=== PATIENT | female | born 1950 | race Caucasian/White ===

== ENCOUNTER 2018-03-21 11:36 | Inpatient (IN) ==
--- NOTE | 2018-03-21 11:53 | History & Physical Report ---
Date of Encounter: 03/21/18 Time of Encounter: 11:52 24 Hour HP Update - Instructions Instructions: If the History and Physical is less than 30 days old and was completed prior to A.M. admission and or procedure and has NOT been updated on calendar day of procedure please complete this update prior to performing procedure. - Update Patient reports changes in Medical Condition: No Changes in examination, assessment, or condition: No Changes in Medication: No Preop tests/diagnostics Reviewed: Yes Surgery Remains Indicated: Yes Consent for Planned Operative Procedure(s) Verified: Yes - Pre-Operative Checklist Preoperative Checklist Indicated: No Prophylactic Antibiotic Ordered: Yes Is VTE Prophylaxis Indicated?: Yes
[2018-03-21] MEDS ORDERED: Ringers Solution, Lactated 1,000 ML IVC SCH ×2 (12:00→17:45)
[2018-03-21] MEDS ORDERED: Clindamycin 600 MG/50 ML 600 MG/50 ML IV.SOLN IVPB STA (12:00)
[2018-03-21] MEDS ORDERED: Albuterol 2.5 MG/3 ML NEBULIZER ONE (12:17)
--- NOTE | 2018-03-21 12:44 | Anesthesia Evaluation PreOp ---
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 HX Other Medical History: Denies Any Significant HX Anesthesia History: No Prior Anesthetic Complications Alcohol Use: none Drug use: none Medications and Allergies Albuterol Neb [AccuNeb] 3 ml IH Q8H PRN 09/30/14 [History] Alprazolam [Xanax] 1 mg PO QID 09/30/14 [History] Atenolol [Tenormin] 50 mg PO QAM 09/30/14 [History] Fluticasone Propionate Nasal [Flonase] 50 mcg NS DAILY PRN 09/30/14 [History] HYDROcodone/Acet 7.5/325 mg [[place] 7.5-325 mg] 1 tab PO BID PRN 09/30/14 [History] Promethazine [Phenergan] 25 mg PO BID PRN 09/30/14 [History] Ranitidine HCl [Zantac] 150 mg PO DAILY PRN 09/30/14 [History] Tiotropium [Spiriva] 2 puff IH QAM 09/30/14 [History] Albuterol Sulfate [Albuterol Inhaler] 2 puff IH Q4HR PRN 01/05/15 [History] Aspirin 81 mg PO QAM 01/05/15 [History] Isosorbide MONOnitrate (24 HR) [Imdur] 60 mg PO QAM 01/05/15 [History] Lisinopril [Zestril] 10 mg PO QAM 01/05/15 [History] Docusate [Colace] 100 mg PO TIDWM #90 capsule 01/14/15 [Rx] Furosemide [Lasix] 40 mg PO DAILY #0 01/14/15 [Rx] predniSONE [Prednisone] 60 mg PO DAILY 5 Days tablet 03/14/15 [Rx] predniSONE [PredniSONE] 40 mg PO DAILY 4 Days tablet 04/29/15 [Rx] Promethazine/Phenyleph/Codeine [Promethazine Vc-Codeine Syrup] 5 ml PO Q6H PRN #120 ml 05/20/15 [Rx] Benzonatate [Tessalon] 200 mg PO TID PRN #30 capsule 06/01/16 [Rx] GuaiFENesin ER [Mucinex] 1,200 mg PO BID #20 tbbp.12hr 06/01/16 [Rx] levoFLOXacin [Levaquin] 500 mg PO DAILY #10 tablet 06/01/16 [Rx] predniSONE [Prednisone] 60 mg PO DAILY 5 Days tablet 06/01/16 [Rx] Azithromycin [Azithromycin 6-Tab Pack] 250 mg PO PER PKG DI #6 tab 11/29/17 [Rx] Allergy/AdvReac Type Severity Reaction Status Date / Time Penicillins [PCN] Allergy Anaphylaxis Verified 03/20/18 12:36 codeine AdvReac Gastrointestinal Verified 03/20/18 12:36 Upset wasp Allergy Anaphylaxis Uncoded 03/20/18 12:36 - Meds/Allergy Pre-op Review Medications Reviewed: Yes Allergies Reviewed: Yes Beta Blockers on Current Med List: Yes Anesthesia Results - Labs Laboratory Tests 03/20/18 03/20/18 03/20/18 12:50 12:50 12:50 WBC 6.2 Hgb 10.5 L Hct 31.5 L Plt Count 250 PT 10.5 INR 0.9 APTT 31.4 Sodium 134 L Potassium 3.8 Chloride 97 L Carbon Dioxide 26 BUN 6 L Creatinine 0.68 Est GFR ( Amer) > 60 Est GFR (Non-Af Amer) > 60 BUN/Creatinine Ratio 9 - Imaging EKG: report reviewed, image reviewed (SR) Anesthesia Exam Weight: 44 kg NPO (# of Hours): > 8 hrs - HEENT Pupil (Motor): Pupils equal, EOMI Mallampati: II Teeth: Edentulous Denture Type: Upper: Complete Oral Opening: Greater than 3 - TRANSPORT OPERATIONS INSPECTOR LOC: Oriented - Cardiac Rhythm: Regular Murmur: None - Pulmonary Breath Sounds: bilateral Clear Respiratory Effort: Symmetrical Anesthesia Assess/Plan ASA Score: 3 Level of consciousness: Cooperative Anesthetic Plan: General Reason for No Neuroaxial/Regional Block: Other (Patient with severe COPD - patient concerned about undergoing nerve block given her difficultly breathing at baseline) Monitoring Plan: Standard Monitors Recovery Plan: PACU
[2018-03-21] MEDS ORDERED: Scopolamine Patch 1.5 MG PATCH.TD72 TD ONE (12:45)
[2018-03-21] MEDS ORDERED: Ondansetron 4 MG/2 ML VIAL IVP ONE (12:46)
[2018-03-21] MEDS ORDERED: *HR* Midazolam HCl 2 MG/2 ML VIAL ONE (12:58)
[2018-03-21] MEDS ORDERED: *HR* FentaNYL (PF) 100 MCG/2 ML VIAL ONE (12:58)
[2018-03-21] MEDS ORDERED: *HR* Propofol 200 MG/20 ML VIAL IVP ONE (12:58)
--- NOTE | 2018-03-21 13:07 | Discharge Summary ---
Orders not resulted at time of discharge: Pending orders 03/21/18 12:08 XR shoulder complete RT [XR] Routine Hemoglobin and Hematocrit [HEME] Routine Date of Encounter: 03/22/18 Time of Encounter: 06:50 - Discharge Diagnosis (1) Hypertension Priority: Secondary Status: Chronic Qualifiers: Hypertension type: unspecified Qualified Code(s): I10 - Essential (primary) hypertension (2) COPD (chronic obstructive pulmonary disease) Priority: Secondary Status: Chronic Qualifiers: COPD type: unspecified COPD Qualified Code(s): J44.9 - Chronic obstructive pulmonary disease, unspecified (3) Humerus fracture Priority: Primary Status: Acute Qualifiers: Encounter type: initial encounter Humerus Location: surgical neck Fracture type: closed Fracture morphology: 2-part Fracture alignment: displaced Laterality: right Qualified Code(s): S42.221A - 2-part displaced fracture of surgical neck of right humerus, initial encounter for closed fracture (4) Status post reverse total shoulder replacement Priority: Primary Status: Acute Qualifiers: Laterality: right Qualified Code(s): Z96.611 - Presence of right artificial shoulder joint - Hospital Course Hospital course: Ms. Johansen is a 67 year old female The patient had an uneventful postoperative course. They received antibiotics and physical therapy and were discharged in stable condition. There will follow-up in the office in 2 weeks. - Time Spent with Patient Total time spent providing and/or coordinating discharge services: - Discharge Medications Home Medications: ALPRAZolam [Xanax 1 MG Tablet] 1 mg PO TID 03/21/18 [History] Albuterol Sulfate [Ventolin Hfa] 2 puff IH Q4H PRN 03/21/18 [History] Atenolol [Tenormin] 50 mg PO DAILY 03/21/18 [History] Budesonide/Formoterol 160/4.5 [Symbicort 160/4.5] 2 puff IH DAILY 03/21/18 [History] Buspirone HCl [Buspar] 10 mg PO HS 03/21/18 [History] Calcium Carbonate/Vitamin D3 [Calcium 600 + Vit D Softgel] 1 each PO DAILY 03/21/18 [History] Fluticasone Propionate Nasal [Flonase] 1 spray NS DAILY PRN 03/21/18 [History] Furosemide [Lasix] 40 mg PO DAILY 03/21/18 [History] Ipratropium/Albuterol Neb [Duoneb] 3 ml IH Q6HR PRN 03/21/18 [History] Isosorbide MONOnitrate (24 HR) [Imdur] 60 mg PO DAILY 03/21/18 [History] Lisinopril [Zestril] 10 mg PO DAILY 03/21/18 [History] OxyCODONE Immed Rel [Roxicodone 5 MG] 5 mg PO Q6HR PRN 5 Days #20 tablet 03/21/18 [Rx] OxyCODONE/APAP 10/325 [Percocet 10/325 MG] 1 each PO BID PRN 03/21/18 [History] Promethazine [Phenergan] 25 mg PO BID PRN 03/21/18 [History] Tiotropium [Spiriva] 1 puff IH DAILY 03/21/18 [History] raNITIdine HCl [Ranitidine HCl] 300 mg PO BID 03/21/18 [History] Allergies/Adverse Reactions: Allergy/AdvReac Type Severity Reaction Status Date / Time Penicillins [PCN] Allergy Anaphylaxis Verified 03/20/18 12:36 codeine AdvReac Gastrointestinal Verified 03/20/18 12:36 Upset wasp Allergy Anaphylaxis Uncoded 03/20/18 12:36 Primary care physician: Joshua Wells MD - Patient Status Disposition: Home, Self-Care Condition: Good Functional capacity at discharge: independent ambulation Overall status at discharge: patient is progressing back to baseline - Discharge Instructions Follow Up With: Joshua Wells MD [Primary Care Provider] -
[2018-03-21] MEDS ORDERED: Ethanol\\Acetic Acid\\Na Ace\\Ben 1,000 ML IRRIG.SOLN IR ONE (14:08)
[2018-03-21] MEDS ORDERED: Acetaminophen IV 1,000 MG/100 ML INFUS..BTL ONE (15:05)
[2018-03-21] MEDS ORDERED: Lidocaine -MPF 4% 5 ML AMPUL ONE (15:11)
[2018-03-21] MEDS ORDERED: Lidocaine -MPF 2% 2 ML VIAL ONE (15:11)
[2018-03-21] MEDS ORDERED: *HR* PHENYLEPHRINE 1,000 MCG/10 ML SYRINGE IVP ONE (15:11)
[2018-03-21] MEDS ORDERED: Dexamethasone 4 MG/ML VIAL ONE (15:11)
[2018-03-21] MEDS ORDERED: *HR* Rocuronium Bromide 50 MG/5 ML VIAL ONE (15:11)
[2018-03-21] MEDS ORDERED: Ondansetron 4 MG/2 ML VIAL ONE (15:11)
[2018-03-21] MEDS ORDERED: Neostigmine Methylsulfate 3 MG/3 ML SYRINGE ONE (15:24)
[2018-03-21] MEDS ORDERED: *HR* HYDROMORPHONE 2 MG/ML VIAL ONE (15:40)
--- NOTE | 2018-03-21 15:46 | Orthopedic Operative Note ---
Date of procedure: 03/21/18 Pre-op diagnosis: Displaced right proximal humerus fracture Post-op diagnosis: same Procedure: Procedure: Reverse total shoulder replacment, right Estimated blood loss: 50 cc Hardware: Metal and polyethylene replacement Arthrex glenoid baseplate: 24, +4, 25 mm screw, baseplate , 4 locking 5.5 screw, glenosphere: 39+4 , humeral stem: 9 , poly insert: 3 2 Arthrex cerclage fiber tapes Procedural Notes: Displaced comminuted proximal humerus fracture Operative procedure: The patient was brought to the operating room and placed on the operating room table. After general anesthesia was administered the operative shoulder was examined. Findings were noted. The patient was placed in the modified beachchair position. All pressure points were padded appropriately. And the head was stabilized in the neutral position. The operative extremity was prepped and draped in the sterile surgical fashion. The patient received IV antibiotics prior to skin incision. A standard deltopectoral approach was made to the operative shoulder. Incision was made to the skin and subcutaneous tissue,hemo stasis was obtained with Bovie cautery. Using careful blunt dissection the cephalic vein was identified and mobilized medially. The deltopectoral interval was developed and the clavipectoral fascia was incised. The greater tuberosity was identified and tagged with 2 #2 FiberWire suture to cerclage fiber tapes. The humeral head was removed. Anterior and posterior Bankart retractors were placed to expose the glenoid. The glenoid guide was seated and the centering hole was made. It was reamed with the appropriate reamer. The baseplate was seated 24, +4, 25 mm screw. And secured with 4 locking 5.5 screws The baseplate was irrigated and dried and the appropriate 39+4 was seated and secured with the Patton taper. The Patton taper was tested and found to be secure with the [employer] well, the humerus was redislocated and prepared with the diaphyseal reamers, followed by a broaching process up to the appropriate size 9 in 20 degrees of retro-version. Trial reduction found the shoulder to be relocatable. Trial components were removed The real humeral component was impaced in place in 20 degrees of retroversion. Trial reduction found the shoulder to be relocatable and stable with the appropriate 3 Dianna. Trial component was removed and the real implant was seated and secured the shoulder was reduced. The shoulder had excellent motion and excellent stability and no evidence of dislocation. The greater tuberosity was reduced and repaired to the implant with 2 # cerclage fiber tapes. t The deep tissue was irrigated with pulse irrigation. The deltopectoral interval was closed with a running #1 PDS suture, subcutaneous tissue was irrigated and closed with 0 PDS suture, the skin was closed with skin farheen The patient was placed in a sterile dressing, abduction brace and extubated. The patient was then transferred to the recovery room in stable condition. Anesthesia: GETA Surgeon: Luis Christianson Was there an medical assistant secretary present: No Estimated blood loss (cc): 50 Condition: stable Disposition: PACU
[2018-03-21] MEDS ORDERED: *HR* OxyCODONE Immed Rel 5 MG TABLET PO ONE (15:59)
[2018-03-21] MEDS ORDERED: *HR* FentaNYL (PF) 100 MCG/2 ML VIAL IVP SCH (16:00)
[2018-03-21] MEDS ORDERED: *HR* Promethazine 25 MG/ML VIAL IVP PRN ×2 (16:02)
[2018-03-21] MEDS ORDERED: *HR* FentaNYL (PF) 100 MCG/2 ML VIAL IVP PRN (16:02)
--- NOTE | 2018-03-21 16:36 | Anesthesia Evaluation Post Op ---
Date of Encounter: 03/21/18 Time of Encounter: 16:35 - Vital Signs Vital Signs: Last Vital Signs Temp 97.7 F 03/21/18 16:18 Pulse 72 03/21/18 16:18 Resp 16 03/21/18 16:18 BP 137/89 03/21/18 16:18 Pulse Ox 93 03/21/18 16:08 - Lungs Lungs: Clear Ascult./Percussion - Airway Airway: Non-obstructed - Cardiovascular Regular Rate - Mental Status Mental Status: Alert & Oriented, Answers Appropriately - Pain Pain Scale: 4 - Nausea Vomiting Nausea Vomiting: Not Present - Hydration Hydration: NPO - Discharge PostOp Status: Transfer Patient to floor
--- NOTE | 2018-03-21 16:49 | Physician Discharge Referral ---
Addendum entered and electronically signed by AMOR Beacuhamp 03/24/18 11:28: ORTHO UPDATE: PATIENT IS NO SHOULDER RANGE OF MOTION. 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 NO SHOULDER PT. NO LIFTING PULLING OR PUSHING. Original Note: <Phoebe Carpenter - Last Filed: 03/21/18 16:47> Home Health/Hosp Referral Info Transfer to: Home Health Attending Provider: Sammy - Diagnosis (1) Status post reverse total shoulder replacement Priority: Primary Status: Acute (2) Humerus fracture Priority: Primary Status: Acute (3) COPD (chronic obstructive pulmonary disease) Priority: Secondary Status: Chronic (4) Hypertension Priority: Secondary Status: Chronic - Respiratory Orders Oxygen / L per min (2L at night) Smoking Cessation: Smoking cessation has been advised. For more information, call the [place] Tobacco Quit Line at 3-058-ISSQ-NOW. - Diet/Nutrition Diet/Nutrition Orders: Regular - Activity Activity Orders: Up ad rosmery, Ambulate, Chair - Services Needed Following services are medically necessary services: Nursing, Home Health Aide, Physical Therapy, Occupational Therapy Home Care Orders: Opsite dressing, leave intact until first post-operative visit. Zipline/[place] in place, plan to remove at post-operative day #14-16. If dressing becomes >50% saturated, contact office, remove dressing and place appropriate dressing in its place. Do not allow for dressing to get wet. Shoulder Precautions x 6 weeks. Apply cold therapy wrap 3-6x/day for 20 minutes at a time. Encourage ambulation throughout the day. Use Incentive spirometer 10x/hour. Elevate affected extremity above heart as tolerated. NWB to affected upper extremity x 6 weeks. Will remove brace at first post-operative appointment. OK to remove during PT/OT and Home exercises. - Transfer Medications Home Medications: ALPRAZolam [Xanax 1 MG Tablet] 1 mg PO TID 03/21/18 [History] Albuterol Sulfate [Ventolin Hfa] 2 puff IH Q4H PRN 03/21/18 [History] Atenolol [Tenormin] 50 mg PO DAILY 03/21/18 [History] Budesonide/Formoterol 160/4.5 [Symbicort 160/4.5] 2 puff IH DAILY 03/21/18 [History] Buspirone HCl [Buspar] 10 mg PO HS 03/21/18 [History] Calcium Carbonate/Vitamin D3 [Calcium 600 + Vit D Softgel] 1 each PO DAILY 03/21/18 [History] Fluticasone Propionate Nasal [Flonase] 1 spray NS DAILY PRN 03/21/18 [History] Furosemide [Lasix] 40 mg PO DAILY 03/21/18 [History] Ipratropium/Albuterol Neb [Duoneb] 3 ml IH Q6HR PRN 03/21/18 [History] Isosorbide MONOnitrate (24 HR) [Imdur] 60 mg PO DAILY 03/21/18 [History] Lisinopril [Zestril] 10 mg PO DAILY 03/21/18 [History] OxyCODONE Immed Rel [Roxicodone 5 MG] 5 mg PO Q6HR PRN 5 Days #20 tablet 03/21/18 [Rx] OxyCODONE/APAP 10/325 [Percocet 10/325 MG] 1 each PO BID PRN 03/21/18 [History] Promethazine [Phenergan] 25 mg PO BID PRN 03/21/18 [History] Tiotropium [Spiriva] 1 puff IH DAILY 03/21/18 [History] raNITIdine HCl [Ranitidine HCl] 300 mg PO BID 03/21/18 [History] Allergies/Adverse Reactions: Allergy/AdvReac Type Severity Reaction Status Date / Time Penicillins [PCN] Allergy Anaphylaxis Verified 03/20/18 12:36 codeine AdvReac Gastrointestinal Verified 03/20/18 12:36 Upset wasp Allergy Anaphylaxis Uncoded 03/20/18 12:36 Certification: Further, I certify that my clinical findings support that this patient is homebound (i.e. absences from home require considerable and taxing effort and are for medical reasons or baptist services or infrequently or short duration when for other reasons) because: Homebound Reason: Post-surgery restriction and or conditions limit ability to leave home Attestation: My signature below is to certify that this patient is under my care and that I, or nurse practitioner, or a physician surveyor instrument assistant working with me, has a [id number] encounter with this patient. <Luis Christianson - Last Filed: 03/22/18 06:40> Home Health/Hosp Referral Info Provider in Charge Post Discharge: PCP - Diagnosis (1) Hypertension Status: Chronic (2) COPD (chronic obstructive pulmonary disease) Status: Chronic (3) Humerus fracture Status: Acute (4) Status post reverse total shoulder replacement Status: Acute (5) Acute blood loss anemia Status: Acute - Respiratory Orders Smoking Cessation: Smoking cessation has been advised. For more information, call the [place] Tobacco Quit Line at 0-250-HLYQ-NOW. Certification: Further, I certify that my clinical findings support that this patient is homebound (i.e. absences from home require considerable and taxing effort and are for medical reasons or baptist services or infrequently or short duration when for other reasons) because: Attestation: My signature below is to certify that this patient is under my care and that I, or nurse practitioner, or a physician's surveyor instrument assistant working with me, has a [id number] encounter with this patient.
[2018-03-21 17:02] LABS: Hematocrit 29.3 % (35.3-44.9); Hemoglobin 9.8 g/dL (11.5-15.4)
[2018-03-21] MEDS ORDERED: Naloxone 0.4 MG/ML INJ IVP PRN (17:45)
[2018-03-21] MEDS ORDERED: traMADol 50 MG TABLET PO PRN (17:45)
[2018-03-21] MEDS ORDERED: Sennosides 8.6 MG TABLET PO PRN (17:45)
[2018-03-21] MEDS ORDERED: Fluticasone Propionate Nasal 50 MCG/SPRAY BOTTLE NS PRN (17:45)
[2018-03-21] MEDS ORDERED: *HR* OxyCODONE/APAP 5/325 TABLET PO PRN (17:45)
[2018-03-21] MEDS ORDERED: MOM Conc 10 ML UD.LIQ PO PRN (17:45)
[2018-03-21] MEDS ORDERED: Ipratropium/Albuterol Neb 3 ML IH PRN (17:45)
[2018-03-21] MEDS ORDERED: Temazepam 15 MG CAPSULE PO PRN (17:45)
[2018-03-21] MEDS: ALPRAZolam 1 MG TABLET PO SCH ×2 (21:05→21:19)
[2018-03-21] MEDS: Famotidine 20 MG TABLET PO SCH (21:19)
[2018-03-21] MEDS: *HR* OxyCODONE Immed Rel 5 MG TABLET PO PRN (21:26)
[2018-03-22] MEDS: *HR* OxyCODONE Immed Rel 5 MG TABLET PO PRN ×5 (02:50→19:46)
[2018-03-22 03:52] LABS: Hematocrit 29.8 % (35.3-44.9); Hemoglobin 9.9 g/dL (11.5-15.4)
[2018-03-22] MEDS: Clindamycin 600 MG/50 ML 600 MG/50 ML IV.SOLN IVPB SCH ×2 (03:56→11:18)
[2018-03-22 04:08] LABS: BUN/Creatinine Ratio 13 (6-26); Blood Urea Nitrogen 9 mg/dL (8-23); Carbon Dioxide 25 mEq/L (23-29); Chloride 97 mEq/L (98-107); Glucose 127 mg/dL (70-105); Osmolality,Calculated 266 (280-300); Potassium 4.8 mEq/L (3.5-5.1); Sodium 128 mEq/L (136-145); eGFR For Non-African Americans > 60 (> 60)
--- NOTE | 2018-03-22 06:39 | Orthopedics Progress Note ---
Date of Encounter: 03/22/18 Time of Encounter: 06:39 - Assessment and Plan (1) Hypertension Current Visit: Yes Status: Chronic Qualifiers: Hypertension type: unspecified Qualified Code(s): I10 - Essential (primary) hypertension (2) COPD (chronic obstructive pulmonary disease) Current Visit: Yes Status: Chronic Qualifiers: COPD type: unspecified COPD Qualified Code(s): J44.9 - Chronic obstructive pulmonary disease, unspecified (3) Humerus fracture Current Visit: No Status: Acute Qualifiers: Encounter type: initial encounter Humerus Location: surgical neck Fracture type: closed Fracture morphology: 2-part Fracture alignment: displaced Laterality: right Qualified Code(s): S42.221A - 2-part displaced fracture of surgical neck of right humerus, initial encounter for closed fracture (4) Status post reverse total shoulder replacement Current Visit: Yes Status: Acute Qualifiers: Laterality: right Qualified Code(s): Z96.611 - Presence of right artificial shoulder joint (5) Acute blood loss anemia Current Visit: Yes Status: Acute Subjective Interval history: Patient was seen this morning doing well without complaints. Afebrile vital signs stable. Operative extremity: Neurovascularly intact Dressing clean dry and intact Calves nontender Assessment and plan: Continue with postoperative care Hemoglobin 9.9 stable for discharge Objective Vital signs: Vital Signs Temp Pulse Resp BP Pulse Ox 03/22/18 03:55 97.5 F L 64 15 139/72 98 03/21/18 23:07 97.6 F 62 14 120/82 97 03/21/18 21:24 128/79 03/21/18 19:05 98.1 F 61 14 93/54 98 03/21/18 17:45 71 16 120/72 95 03/21/18 17:15 75 16 90/44 94 03/21/18 16:45 72 14 131/81 93 03/21/18 16:28 98.0 F 73 13 142/91 94 03/21/18 16:18 97.7 F 72 16 137/89 93 03/21/18 16:08 73 13 153/76 93 03/21/18 15:58 73 15 139/83 94 03/21/18 15:48 98.2 F 74 14 123/86 92 03/21/18 12:48 99.1 F 77 18 118/83 92 Intake and Output 03/21/18 03/21/1803/22/19 15:59 23:59 07:59 Intake Total 0 / 0 Output Total 50 / 50 0 / 0 300 / 300 Balance -50 / -50 0 / 0 -300 / -300 Intake: Oral 0 / 0 Output: Urine 0 / 0 300 / 300 Estimated Blood Loss 50 / 50 Other: # Voids 1 Weight 43.545 kg - Labs CBC & BMP: 03/22/18 03:39 03/22/18 03:39 Labs: Abnormal lab results Hgb 9.9 g/dL (11.5-15.4) L 03/22/18 03:39 Hct 29.8 % (35.3-44.9) L 03/22/18 03:39 Sodium 128 mEq/L (136-145) L 03/22/18 03:39 Chloride 97 mEq/L (98-107) L 03/22/18 03:39 Glucose 127 mg/dL (70-105) H 03/22/18 03:39 Calculated Osmolality 266 (280-300) L 03/22/18 03:39 Consult Discharge Plan - Plan Referrals: Joshua Wells MD [Primary Care Provider] -
[2018-03-22] MEDS: Budesonide/Formoterol 160/4.5 1 PUFF INH IH SCH (08:08)
[2018-03-22] MEDS: Tiotropium 18 MCG inhalation IH SCH (08:08)
[2018-03-22] MEDS ORDERED: Aspirin Enteric Coated 81 MG Tablet PO SCH (09:00)
[2018-03-22] MEDS: Isosorbide MONOnitrate (24 HR) 60 MG TAB.ER.24H PO SCH (09:16)
[2018-03-22] MEDS: Aspirin Enteric Coated 81 MG Tablet PO SCH (09:16)
[2018-03-22] MEDS: ALPRAZolam 1 MG TABLET PO SCH ×3 (09:16→20:00)
[2018-03-22] MEDS: Famotidine 20 MG TABLET PO SCH ×2 (09:16→15:30)
[2018-03-23] MEDS: *HR* OxyCODONE Immed Rel 5 MG TABLET PO PRN ×3 (01:47→22:53)
--- NOTE | 2018-03-23 06:34 | Orthopedics Progress Note ---
Date of Encounter: 03/23/18 Time of Encounter: 06:33 - Assessment and Plan (1) Hypertension Current Visit: Yes Status: Chronic Qualifiers: Hypertension type: unspecified Qualified Code(s): I10 - Essential (primary) hypertension (2) COPD (chronic obstructive pulmonary disease) Current Visit: Yes Status: Chronic Qualifiers: COPD type: unspecified COPD Qualified Code(s): J44.9 - Chronic obstructive pulmonary disease, unspecified (3) Humerus fracture Current Visit: No Status: Acute Qualifiers: Encounter type: initial encounter Humerus Location: surgical neck Fracture type: closed Fracture morphology: 2-part Fracture alignment: displaced Laterality: right Qualified Code(s): S42.221A - 2-part displaced fracture of surgical neck of right humerus, initial encounter for closed fracture (4) Status post reverse total shoulder replacement Current Visit: Yes Status: Acute Qualifiers: Laterality: right Qualified Code(s): Z96.611 - Presence of right artificial shoulder joint Subjective Interval history: Patient was seen this morning doing well without complaints. Afebrile vital signs stable. Operative extremity: Neurovascularly intact Dressing clean dry and intact Calves nontender Assessment and plan: Continue with postoperative care Plan for discharge today Objective Vital signs: Vital Signs Temp Pulse Resp BP Pulse Ox 03/23/18 02:55 99.9 F H 88 16 104/64 97 03/22/18 23:09 99.8 F H 80 16 94/61 94 03/22/18 20:03 2 03/22/18 20:02 98.6 F 79 18 135/87 97 03/22/18 16:12 98.4 F 79 16 132/71 94 03/22/18 10:54 97.9 F 73 15 135/92 98 03/22/18 09:00 99 03/22/18 08:08 16 132/80 98 03/22/18 06:57 97.8 F 64 14 132/80 99 Intake and Output 03/22/18 03/22/18 03/23/18 15:59 23:59 07:59 Intake Total 200 / 200 0 / 0 Output Total 300 / 300 820 / 820 Balance -300 / -300 -620 / -620 0 / 0 Intake: Oral 200 / 200 0 / 0 Output: Urine 300 / 300 820 / 820 Other: # Voids 1 Weight 46.97 kg Patient Weight 03/23/18 23:59 Weight 46.97 kg - Labs CBC & BMP: 03/22/18 03:39 03/22/18 03:39 Labs: Abnormal lab results Hgb 9.9 g/dL (11.5-15.4) L 03/22/18 03:39 Hct 29.8 % (35.3-44.9) L 03/22/18 03:39 Sodium 128 mEq/L (136-145) L 03/22/18 03:39 Chloride 97 mEq/L (98-107) L 03/22/18 03:39 Glucose 127 mg/dL (70-105) H 03/22/18 03:39 Calculated Osmolality 266 (280-300) L 03/22/18 03:39 Consult Discharge Plan - Plan Referrals: Joshua Wells MD [Primary Care Provider] -
[2018-03-23 07:09] LABS: Hematocrit 24.8 % (35.3-44.9); Hemoglobin 8.4 g/dL (11.5-15.4)
[2018-03-23] MEDS ORDERED: Acetaminophen 325 MG TABLET PO PRN (07:15)
[2018-03-23] MEDS: Isosorbide MONOnitrate (24 HR) 60 MG TAB.ER.24H PO SCH (07:20)
[2018-03-23] MEDS: Aspirin Enteric Coated 81 MG Tablet PO SCH (07:21)
[2018-03-23] MEDS: ALPRAZolam 1 MG TABLET PO SCH ×3 (07:21→21:00)
[2018-03-23] MEDS: Famotidine 20 MG TABLET PO SCH ×2 (07:21→15:23)
[2018-03-23 07:30] LABS: BUN/Creatinine Ratio 10 (6-26); Blood Urea Nitrogen 8 mg/dL (8-23); Calcium 8.4 mg/dL (8.6-10.3); Carbon Dioxide 28 mEq/L (23-29); Chloride 96 mEq/L (98-107); Glucose 97 mg/dL (70-105); Osmolality,Calculated 266 (280-300); Potassium 3.9 mEq/L (3.5-5.1); Sodium 129 mEq/L (136-145); eGFR For Non-African Americans > 60 (> 60)
[2018-03-23] MEDS: Budesonide/Formoterol 160/4.5 1 PUFF INH IH SCH (08:02)
[2018-03-23] MEDS: Tiotropium 18 MCG inhalation IH SCH (08:03)
[2018-03-23] MEDS: Acetaminophen IV 1,000 MG/100 ML INFUS..BTL IVPB SCH ×2 (15:21→22:55)
[2018-03-24 04:00] LABS: Hematocrit 27.7 % (35.3-44.9); Hemoglobin 9.2 g/dL (11.5-15.4)
[2018-03-24 04:18] LABS: BUN/Creatinine Ratio 12 (6-26); Blood Urea Nitrogen 9 mg/dL (8-23); Calcium 8.8 mg/dL (8.6-10.3); Carbon Dioxide 30 mEq/L (23-29); Chloride 99 mEq/L (98-107); Glucose 88 mg/dL (70-105); Osmolality,Calculated 278 (280-300); Potassium 3.9 mEq/L (3.5-5.1); Sodium 135 mEq/L (136-145); eGFR For Non-African Americans > 60 (> 60)
[2018-03-24] MEDS: Acetaminophen IV 1,000 MG/100 ML INFUS..BTL IVPB SCH ×3 (06:24→19:00)
[2018-03-24] MEDS: Tiotropium 18 MCG inhalation IH SCH (07:27)
[2018-03-24] MEDS: Budesonide/Formoterol 160/4.5 1 PUFF INH IH SCH (07:27)
[2018-03-24] MEDS: Aspirin Enteric Coated 81 MG Tablet PO SCH (08:21)
[2018-03-24] MEDS: Famotidine 20 MG TABLET PO SCH ×2 (08:21→15:55)
[2018-03-24] MEDS: ALPRAZolam 1 MG TABLET PO SCH ×3 (08:40→21:58)
[2018-03-24] MEDS: Isosorbide MONOnitrate (24 HR) 60 MG TAB.ER.24H PO SCH (08:41)
--- NOTE | 2018-03-24 09:41 | Orthopedics Progress Note ---
Date of Encounter: 03/24/18 Time of Encounter: 09:41 - Assessment and Plan (1) Hypertension Current Visit: Yes Status: Chronic Qualifiers: Hypertension type: unspecified Qualified Code(s): I10 - Essential (primary) hypertension (2) COPD (chronic obstructive pulmonary disease) Current Visit: Yes Status: Chronic Qualifiers: COPD type: unspecified COPD Qualified Code(s): J44.9 - Chronic obstructive pulmonary disease, unspecified (3) Humerus fracture Current Visit: No Status: Inactive Qualifiers: Encounter type: initial encounter Humerus Location: surgical neck Fracture type: closed Fracture morphology: 2-part Fracture alignment: displaced Laterality: right Qualified Code(s): S42.221A - 2-part displaced fracture of surgical neck of right humerus, initial encounter for closed fracture (4) Status post reverse total shoulder replacement Current Visit: Yes Status: Acute Qualifiers: Laterality: right Qualified Code(s): Z96.611 - Presence of right artificial shoulder joint Subjective Interval history: Patient was seen this morning doing well without complaints. Afebrile vital signs stable. Operative extremity: Neurovascularly intact Dressing clean dry and intact Calves nontender Assessment and plan: Continue with postoperative care Plan for discharge today discharge held yesterday secondary to safety concerns. Objective Vital signs: Vital Signs Temp Pulse Resp BP Pulse Ox 03/24/18 07:17 98.5 F 68 15 100/71 95 03/24/18 03:45 98.0 F 68 16 100/68 100 03/23/18 23:28 99.3 F 76 18 103/64 97 03/23/18 19:11 98.4 F 77 18 111/73 95 03/23/18 15:11 100.2 F H 76 18 93/60 93 03/23/18 11:15 99.8 F H 80 16 103/69 94 03/23/18 09:45 116/77 98 Intake and Output 03/23/18 03/24/18 03/24/18 23:59 07:59 15:59 Intake Total 800 / 800 100 / 100 Output Total 100 / 100 Balance 800 / 800 0 / 0 Intake: IV Fluids 200 / 200 Ofirmev 1,000 mg/100 ml 1,000 200 / 200 mg In 100 ml @ 400 mls/hr IVPB Q6HR [facility] Rx#:[id number] Oral 600 / 600 100 / 100 Output: Urine 100 / 100 Other: # Voids 1 1 Weight 50.45 kg Patient Weight 03/24/18 23:59 Weight 50.45 kg - Labs CBC & BMP: 03/24/18 03:36 03/24/18 03:36 Labs: Abnormal lab results Hgb 9.2 g/dL (11.5-15.4) L 03/24/18 03:36 Hct 27.7 % (35.3-44.9) L 03/24/18 03:36 Sodium 135 mEq/L (136-145) L 03/24/18 03:36 Carbon Dioxide 30 mEq/L (23-29) H 03/24/18 03:36 Calculated Osmolality 278 (280-300) L 03/24/18 03:36 Consult Discharge Plan - Plan Referrals: Joshua Wells MD [Primary Care Provider] -
[2018-03-24] MEDS ORDERED: 0.9 % Sodium Chloride 500 ML IVC ONE (15:21)
[2018-03-24] MEDS ORDERED: Isosorbide MONOnitrate (24 HR) 60 MG TAB.ER.24H PO SCH (15:21)
[2018-03-24] MEDS: *HR* OxyCODONE Immed Rel 5 MG TABLET PO PRN (18:56)
[2018-03-24] MEDS: Ondansetron 4 MG/2 ML VIAL IVP PRN (19:04)
[2018-03-25] MEDS: Acetaminophen IV 1,000 MG/100 ML INFUS..BTL IVPB SCH ×2 (05:40)
[2018-03-25] MEDS: Budesonide/Formoterol 160/4.5 1 PUFF INH IH SCH (07:13)
[2018-03-25] MEDS: *HR* OxyCODONE Immed Rel 5 MG TABLET PO PRN (07:29)
[2018-03-25] MEDS: ALPRAZolam 1 MG TABLET PO SCH (07:29)
[2018-03-25] MEDS: Aspirin Enteric Coated 81 MG Tablet PO SCH (07:30)
[2018-03-25] MEDS: Famotidine 20 MG TABLET PO SCH (07:30)
[2018-03-25] MEDS: Ondansetron 4 MG/2 ML VIAL IVP PRN (07:43)
[2018-03-25 08:04] LABS: Hematocrit 28.7 % (35.3-44.9); Hemoglobin 9.6 g/dL (11.5-15.4)
--- NOTE | 2018-03-25 08:06 | Orthopedics Progress Note ---
Date of Encounter: 03/25/18 Time of Encounter: 08:05 - Assessment and Plan (1) Hypertension Current Visit: Yes Status: Chronic Qualifiers: Hypertension type: unspecified Qualified Code(s): I10 - Essential (primary) hypertension (2) COPD (chronic obstructive pulmonary disease) Current Visit: Yes Status: Chronic Qualifiers: COPD type: unspecified COPD Qualified Code(s): J44.9 - Chronic obstructive pulmonary disease, unspecified (3) Humerus fracture Current Visit: No Status: Inactive Qualifiers: Encounter type: initial encounter Humerus Location: surgical neck Fracture type: closed Fracture morphology: 2-part Fracture alignment: displaced Laterality: right Qualified Code(s): S42.221A - 2-part displaced fracture of surgical neck of right humerus, initial encounter for closed fracture (4) Status post reverse total shoulder replacement Current Visit: Yes Status: Acute Qualifiers: Laterality: right Qualified Code(s): Z96.611 - Presence of right artificial shoulder joint Subjective Interval history: Patient was seen this morning doing well without complaints. Afebrile vital signs stable. Operative extremity: Neurovascularly intact Dressing clean dry and intact Calves nontender Assessment and plan: Continue with postoperative care Plan for discharge today Objective Vital signs: Vital Signs Temp Pulse Resp BP Pulse Ox 03/25/18 07:38 134/82 03/25/18 06:46 98.4 F 76 15 101/65 96 03/25/18 03:18 99.1 F 83 16 91/61 94 03/24/18 23:13 108/70 03/24/18 22:18 97.7 F 84 18 157/85 94 03/24/18 22:12 98 03/24/18 18:55 76 114/77 03/24/18 15:24 98.3 F 69 16 91/51 98 03/24/18 11:17 98.2 F 70 16 92/59 98 Intake and Output 03/24/18 03/25/18 03/25/18 23:59 07:59 15:59 Intake Total 600 / 600 100 / 100 Output Total 450 / 450 500 / 500 Balance 150 / 150 -400 / -400 Intake: IV Fluids 600 / 600 100 / 100 0.9 % Sodium Chloride 500 ML @ 500 / 500 999 mls/hr IVC .Q31M ONE Rx#: [id number] Ofirmev 1,000 mg/100 ml 1,000 100 / 100 100 / 100 mg In 100 ml @ 400 mls/hr IVPB Q6HR JONA Rx#:[id number] Output: Urine 450 / 450 500 / 500 Other: # Voids 1 1 - Labs CBC & BMP: 03/24/18 03:36 03/24/18 03:36 Labs: Abnormal lab results Hgb 9.2 g/dL (11.5-15.4) L 03/24/18 03:36 Hct 27.7 % (35.3-44.9) L 03/24/18 03:36 Sodium 135 mEq/L (136-145) L 03/24/18 03:36 Carbon Dioxide 30 mEq/L (23-29) H 03/24/18 03:36 Calculated Osmolality 278 (280-300) L 03/24/18 03:36 Consult Discharge Plan - Plan Referrals: Phoebe Avilez PAC [Physician [employer]ter] - 03/28/18 2:15 pm Luis Christianson MD [Partnered Physician] - 04/16/18 4:05 pm Joshua Wells MD [Primary Care Provider] -
[2018-03-25 08:24] LABS: BUN/Creatinine Ratio 9 (6-26); Blood Urea Nitrogen 6 mg/dL (8-23); Calcium 8.7 mg/dL (8.6-10.3); Carbon Dioxide 26 mEq/L (23-29); Chloride 98 mEq/L (98-107); Glucose 94 mg/dL (70-105); Osmolality,Calculated 273 (280-300); Sodium 133 mEq/L (136-145); eGFR For Non-African Americans > 60 (> 60)
[2018-03-25] MEDS: Tiotropium 18 MCG inhalation IH SCH (10:15)
[2018-03-25 13:36] VITALS: BP 128/86
== END 2018-03-25 14:37 | disposition home or self-care (01) | DRG 483 ==
LOC: SAMDAY 11:36 → 3NENU 16:59
PROVIDERS: ADMIT Orthopaedic Surgery; ATTEND Orthopaedic Surgery